=== PATIENT | female | born 1990 | race American Indian/Alaskan Native ===

== ENCOUNTER 2017-12-27 00:53 | Emergency (ER) | payer MEDICAID, OTHER ==
[2017-12-27 01:10] VITALS: BMI 31.8
[2017-12-27 01:17] VITALS: RESP 18
[2017-12-27] MEDS ORDERED: Tobramycin 0.3% OPH OINT OS ONE (01:42)
--- NOTE | 2017-12-27 01:42 | ED PDOC ---
Arrival/HPI - General Chief Complaint: Eye Problem Time Seen by Provider: 12/27/17 01:33 Historian: Patient - History of Present Illness Narrative History of Present Illness (Text): 12/27/17 01:40 Gena Vitale is a 27 year old female, whose past medical history includes corneal transplant, who presents to the Emergency department complaining of irritation and redness to the whites of her left eye. Patient reports associated discharge from the left lower lid. 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 Patent denies any history of trauma. Patient states the vision to her left eye is normally impaired secondary to the failed corneal transplant. Patient denies any other changes to the eye other than the recent erythema she noted this evening. Patient states she is scheduled to see her isolation washer tomorrow but wanted eye antibiotics to treat a possible early infection. Patient denies any fever, chills, headache, dizziness, or any other complaints. Tour Actor: Dr. Gavin Becerril Symptom Onset: Gradual Symptom Course: Unchanged Activities at Onset: Light Context: Home Past Medical History - Provider Review Nursing Documentation Reviewed: Yes - Infectious Disease Hx of Infectious Diseases: None - Psychiatric Hx Substance Use: No - Surgical History Hx Femoral-Popliteal Bypass Graft: Yes (L cornea transplant) Family/Social History - Physician Review Nursing Documentation Reviewed: Yes Family/Social History: Unknown Family HX Smoking Status: Light Smoker < 10 Cigarettes Daily Hx Alcohol Use: Yes Frequency of alcohol use: Socially Hx Substance Use: No Allergies/Home Meds Allergies/Adverse Reactions: Allergies No Known Allergies Allergy (Verified 12/27/17 01:10) Review of Systems - Physician Review All systems were reviewed & negative as marked: Yes - Review of Systems Constitutional: Normal. absent: Fevers Eyes: Other (+left eye irritation/redness) ENT: Normal Respiratory: Normal. absent: SOB, Cough Cardiovascular: Normal. absent: Chest Pain Gastrointestinal: Normal. absent: Abdominal Pain, Diarrhea, Nausea, Vomiting Genitourinary Female: Normal. absent: Dysuria, Frequency, Hematuria, Urine Output Changes Musculoskeletal: Normal. absent: Back Pain, Neck Pain Skin: Normal. absent: Rash Neurological: Normal. absent: Headache, Dizziness Endocrine: Normal Hemo/Lymphatic: Normal Psychiatric: Normal Physical Exam Vital Signs Reviewed: Yes Vital Signs Temp Pulse Resp BP Pulse Ox 12/27/17 02:59 98.6 F 80 18 116/78 98 12/27/17 01:16 98.8 F 82 18 121/81 96 Temperature: Afebrile Blood Pressure: Normal Pulse: Regular Respiratory Rate: Normal Appearance: Positive for: Well-Appearing, Non-Toxic, Comfortable Pain Distress: None Mental Status: Positive for: Alert and Oriented X 3 - Systems Exam Head: Present: Atraumatic, Normocephalic Pupils: Present: PERRL Extroacular Muscles: Present: EOMI Conjunctiva: Present: Other (Haziness over the left iris, which is old. Left conjunctival erythema with scanty discharge from the lower lid) Mouth: Present: Moist Mucous Membranes Neck: Present: Normal Range of Motion Respiratory/Chest: Present: Clear to Auscultation, Good Air Exchange. No: Respiratory Distress, Accessory Muscle Use Cardiovascular: Present: Regular Rate and Rhythm, Normal S1, S2. No: Murmurs Abdomen: No: Tenderness, Distention, Peritoneal Signs Back: Present: Normal Inspection Upper Extremity: Present: Normal Inspection. No: Cyanosis, Edema Lower Extremity: Present: Normal Inspection. No: Edema Neurological: Present: GCS=15, CN II-XII Intact, Speech Normal Skin: Present: Warm, Dry, Normal Color. No: Rashes Psychiatric: Present: Alert, Oriented x 3, Normal Insight, Normal Concentration Medical Decision Making ED Course and Treatment: 12/27/17 01:40 Impression: 27 year old female complaining of left eye irritation/redness this evening. Plan: -- Tobrex -- Reassess and disposition Progress Notes: 12/27/17 02:05 On re-evaluation, patient feels better and is in no acute distress. I have discussed the results and plan with the patient, who expresses understanding. Patient in agreement with plan to be discharged home. Patient is stable for discharge. Patient was instructed to follow up with physician or return if symptoms worsen or new concerning symptoms arise. - Medication Orders Current Medication Orders: Discontinued Medications Tobramycin Sulfate (Tobrex 0.3% Ophth Oint) 0 appl OS ONCE ONE Stop: 12/27/17 01:43 Last Admin: 12/27/17 02:08 Dose: 1 applic - Scribe Statement The provider has reviewed the documentation as recorded by the Lizbeth England Provider Scribe Attestation: All medical record entries made by the Scribe were at my direction and personally dictated by me. I have reviewed the chart and agree that the record accurately reflects my personal performance of the history, physical exam, medical decision making, and the department course for this patient. I have also personally directed, reviewed, and agree with the discharge instructions and disposition. Disposition/Present on Arrival - Present on Arrival Any Indicators Present on Arrival: No History of DVT/PE: No History of Uncontrolled Diabetes: No Urinary Catheter: No History of Decub. Ulcer: No History Surgical Site Infection Following: None - Disposition Have Diagnosis and Disposition been Completed?: Yes Diagnosis: Conjunctivitis Disposition: HOME/ ROUTINE Disposition Time: 02:07 Patient Plan: Discharge Patient Problems: Current Active Problems Problem Status Onset Conjunctivitis Acute Condition: GOOD Discharge Instructions (ExitCare): Conjunctivitis ([place]) (DC) Additional Instructions: Eye antibiotics as prescribed/FOLLOW UP WITH YOUR OPTHALMOLOGIST TOMMORROW SCHEDULED Prescriptions: RX: Tobramycin 0.3% [Tobrex 0.3% Ophth Oint] 3.5 gm OS QID #1 tube Forms: [facility] [employer] (K[place]akh)
[2017-12-27 03:01] VITALS: BP 116/78; PULSE 80; TEMP 98.6; O2SAT 98
== END 2017-12-27 03:00 | disposition home or self-care (01) ==
LOC: ED 00:53
DX: H10.9 Unspecified conjunctivitis (principal); F17.210 Nicotine dependence, cigarettes, uncomplicated